=== PATIENT | female | born 1980 | race Caucasian/White ===

== ENCOUNTER 2020-03-31 09:08 | Emergency (ER) | payer OTHER, SELFPAY ==
[2020-03-31 09:15] VITALS: BP 136/86; PULSE 94; RESP 20; TEMP 36.7; O2SAT 97
[2020-03-31] MEDS: SODIUM CHLORIDE 0.9% IV 1,000 ML 999 ML IV CONT (09:36)
[2020-03-31] MEDS: ONDANSETRON INJ 4 MG/2 ML VIAL IV PUSH (09:36)
[2020-03-31 09:44] LABS: Hematocrit 42.5 % (35.0-49.0); Mean Corpuscular HGB Conc 32.9 g/dL (32.0-36.0); Mean Corpuscular Hemoglobin 28.4 pg (27.0-31.0); Mean Corpuscular Volume 86.2 fL (78.0-102.0); Mean Platelet Volume 9.9 fl (9.2-11.8); Platelet Count Result 347 K/mm3 (150-420); Red Blood Count 4.93 M/mm3 (4.20-5.40); White Blood Count 9.3 K/mm3 (4.8-10.8)
[2020-03-31 09:44] LABS: Add Urine Microscopic? YES; Bilirubin Urine Negative (Negative); Blood Urine 3+ (Negative); Color Urine Yellow (Yellow); Glucose Urine UA Negative (Negative); Ketones Urine Negative (Negative); Leukocyte Esterase Ur Negative (Negative); Nitrate Urine Negative (Negative); Protein Urine Negative (Negative); Specific Grav Ur 1.025 (1.010-1.020); Urobilinogen Urine 0.2 mg/dL (0.2-1.0); pH Urine 5.5 (5.0-8.0)
[2020-03-31 09:52] LABS: Appearance Urine Sl Cloudy (Clear); Squamous Epithelial Cell Urine Moderate /hpf (Few); WBC Urine 0-3 /hpf (0-3)
[2020-03-31 09:53] LABS: Bacteria Urine Trace /hpf; Mucus Urine None seen /lpf
[2020-03-31 10:00] LABS: Alanine Aminotransferase 40 U/L (14-59); Albumin Level 4.2 g/dL (3.4-5.0); Alkaline Phosphatase 97 U/L (46-116); Anion Gap 13.6 mmol/L (7-16); Aspartate Amino Transferase 22 U/L (15-37); Bilirubin,Total 0.3 mg/dL (0.00-1.00); Blood Urea Nitrogen 11 mg/dL (7-18); Calcium 9.2 mg/dL (8.5-10.1); Carbon Dioxide 26 mmol/L (21-32); Chloride 102 mmol/L (98-108); Creatine Kinase 99 U/L (26-192); Estimated Glomerular Filt Rate > 60; Glucose 100 mg/dL (70-99); Osmolality Calculated 285 mOsm/kg (285-295); Potassium 3.6 mmol/L (3.5-5.1); Sodium 138 mmol/L (136-145); Total Protein 8.2 g/dL (6.4-8.2)
--- NOTE | 2020-03-31 10:02 | ED.NAVMDI ---
HPI - Nausea/Vomiting/Diarrhea General Chief complaint: Nausea/Vomiting/Diarrhea Stated complaint: Weak,Fever Source: patient Mode of arrival: ambulatory Limitations: no limitations History of Present Illness HPI Narrative: 39-year-old female with some no prior past medical history presents with nausea currently no vomiting has crampy abdominal pain with watery diarrhea with some no fever no chills no shortness of breath had some way Il[place] approximately 2 days ago, patient works at local [employer] and is constantly tested for COVID. Currently there is no cough no shortness of breath. MD elicited complaint: nausea, diarrhea and abdominal pain Onset (ago): day(s) Description of vomiting: watery Location of pain: diffuse and epigastric Pain consistency: intermittent Severity: mild Quality: cramping Exacerbating factors: eating Related Data Allergies Allergy/AdvReac Type Severity Reaction Status Date / Time Penicillins Allergy Severe HIVES Verified 04/30/17 13:43 Review of Systems Review of Systems: All systems reviewed & are unremarkable except as noted in HPI and below PMFSH Past Medical History Medical History Patient denies medical problems Exam Const: General: no acute distress and alert Nutritional Appearance: well nourished and obese Orientation/consciousness: patient oriented x3 HENMT: Head: normal to inspection Eyes: Cornea: corneas normal Pupils: Equal, round and reactive pupils present EOM: EOMs intact bilaterally Neck: Neck: normal visual inspection, no lymphadenopathy and no meningeal signs Chest: Chest palpation & inspection: normal inspection of the chest Resp: Effort & Inspection: normal respiratory effort Cardio: Rate: regular rate Rhythm: regular rhythm GI: GI Palp: Yes Soft to palpation and Yes Tenderness to palpation present (GI) Percussion: Yes normal to percussion Auscultation: normal bowel sounds : General: Yes no CVA tenderness Urinary Catheter: Urinary Catheter: patent and draining Back/Spine/Pelvis: Back: no CVA tenderness Skin: General skin exam: normal color Rashes: no rashes Neuro: General: patient oriented x3, moves all extremities and no meningeal signs Extrem: General: normal to inspection Psych: Appearance: grossly normal Mental Status: mental status grossly normal Thought content: Yes Normal thought content present Course Course Emergency Course: patient is to have crampy abdominal pain but nausea has improved with Zofran, reviewed labs with patient and patient is comfortable going home with recommendations of clear liquid diet and drinking plenty of fluids and following with primary care physician if symptoms persist or worsen. Vital Signs Vital signs: Vital Signs Temperature 36.7 C 03/31/20 09:15 Pulse Rate 94 03/31/20 09:15 Respiratory Rate 20 03/31/20 09:15 Blood Pressure 136/86 03/31/20 09:15 Pulse Oximetry 97 03/31/20 09:15 Temperature 36.7 C 03/31/20 09:15 Pulse Rate 94 03/31/20 09:15 Respiratory Rate 20 03/31/20 09:15 Blood Pressure 136/86 03/31/20 09:15 Pulse Oximetry 97 03/31/20 09:15 MDM - Nausea/Vomiting/Diarrhea Lab Data Result diagrams: 03/31/20 09:36 03/31/20 09:36 Labs: Lab Results 03/31/20 03/31/20 03/31/20 Range/Units 09:30 09:36 09:36 WBC 9.3 (4.8-10.8) K/mm3 RBC 4.93 (4.20-5.40) M/mm3 Hgb 14.0 (12.0-15.0) g/dL Hct 42.5 (35.0-49.0) % MCV 86.2 (78.0-102.0) fL MCH 28.4 (27.0-31.0) pg MCHC 32.9 (32.0-36.0) g/dL RDW 13.0 (11.6-14.4) % Plt Count 347 (150-420) K/mm3 MPV 9.9 (9.2-11.8) fl Sodium 138 (136-145) mmol/L Potassium 3.6 (3.5-5.1) mmol/L Chloride 102 (98-108) mmol/L Carbon Dioxide 26 (21-32) mmol/L Anion Gap 13.6 (7-16) mmol/L BUN 11 (7-18) mg/dL Creatinine 0.78 (0.55-1.02) mg/dL Estim Creat Clear Calc No
[2020-03-31 10:09] VITALS: BP 130/84; PULSE 94; RESP 18; TEMP 36.9; O2SAT 98
== END 2020-03-31 10:16 | disposition home or self-care (01) ==
PROVIDERS: Emergency Provider Emergency Medicine; PCP Family Medicine
DX: K52.9 Noninfective gastroenteritis and colitis, unspecified (principal)
CPT/HCPCS: 36415; 80053; 81001; 82550; 85027; 96361; 96374; 99283; 99284; J2405; J7030

== ENCOUNTER 2020-08-23 10:13 | Outpatient (CLI) | payer OTHER, SELFPAY ==
[2020-08-23 10:55] LABS: SARS-CoV-2 Ag Negative (Negative)
[2020-08-23 10:56] LABS: Influenza Control Valid (Valid)
== END 2020-08-23 10:14 | disposition home or self-care (01) ==
LOC: CHSLAB 10:18
PROVIDERS: PCP Family Medicine; Visit Provider Family Medicine
DX: R50.9 Fever, unspecified (principal); Z20.828 Contact with and (suspected) exposure to other viral communicable diseases
CPT/HCPCS: 87081; 87426; 87804; 87880

== ENCOUNTER 2020-10-21 17:02 | Outpatient (CLI) | payer BC, SELFPAY ==
[2020-10-21 17:43] LABS: Influenza Control Valid (Valid); SARS-CoV-2 Ag Negative (Negative)
[2020-10-23 17:28] LABS: SARS-CoV-2 RNA PCR Negative
== END 2020-10-21 17:03 | disposition home or self-care (01) ==
LOC: CHSLAB 17:06
PROVIDERS: PCP Family Medicine; Visit Provider Family Medicine
DX: J00 Acute nasopharyngitis [common cold] (principal); Z20.822 Contact with and (suspected) exposure to COVID-19
CPT/HCPCS: 87081; 87426; 87804; 87880; C9803; U0003; U0005

== ENCOUNTER 2022-05-14 11:50 | Emergency (ER) | payer OTHER, SELFPAY ==
--- NOTE | ~2022-05-14 | XR_ITS ---
EXAMINATION: XR foot RT 2V DATE: 05/14/2022 12:24 INDICATION: Right foot injury. TECHNIQUE: 2 views of right foot were obtained. COMPARISON: None. FINDINGS: Bone alignment is normal. No fracture. There is mild osteoarthritis of first metatarsophala ngeal joint and some of the interphalangeal joints. IMPRESSION: 1. Mild polyarticular osteoarthritis. Reviewed, dictated and finalized at location A.
[2022-05-14 12:00] VITALS: BP 128/86; PULSE 92; RESP 16; TEMP 36.5; O2SAT 100
[2022-05-14 12:05] VITALS: BP 128/86; PULSE 89; RESP 20; TEMP 36.5; O2SAT 100
--- NOTE | 2022-05-14 13:11 | ED.LOWEXIN ---
HPI - Extremity Injury (Lower) General Chief Complaint: Extremity Injury, Lower Stated Complaint: FOOT PAIN Source: patient Limitations: no limitations History of Present Illness HPI Narrative: this is a 41-year-old female who presents after a heavy object fell on the anterior surface of her right foot causing some pain that she rates about a 5/10 with some bruising has no numbness or tingling has good range of motion in her foot and toes. complaint: foot injury Onset (ago): hour(s) Type of Injury: blunt Place: home Severity: mild Related Data Home Medications Medication Instructions Recorded Confirmed [id number] 1 tablet PO DAILY 05/14/22 05/14/22 Allergies Allergy/AdvReac Type Severity Reaction Status Date / Time Penicillins Allergy Severe HIVES Verified 05/14/22 12:17 Review of Systems Review of Systems: All systems reviewed & are unremarkable except as noted in HPI and below PMFSH Past Medical History Medical History (Updated 05/14/22 @ 13:15 by Curry Miranda MD) Patient denies medical problems Exam Const: General: healthy appearing and no acute distress HENMT: Head: normal to inspection Mouth: Yes Normal oral and palatal mucosa present Eyes: Conjunctivae: conjunctivae normal Pupils: Equal, round and reactive pupils present EOM: EOMs intact bilaterally Direct Ophthalmoscopy: no photophobia Neck: Neck: normal visual inspection Chest: Chest palpation & inspection: normal inspection of the chest Resp: Effort & Inspection: normal respiratory effort Auscultation: clear to auscultation bilaterally Cardio: Rate: regular rate GI: GI Palp: Yes Soft to palpation and Yes Tenderness to palpation present (GI) : General: Yes bladder normal to palpation Skin: Wounds: wounds noted Neuro: General: patient oriented x3 Cranial nerves: Yes Nystagmus not present Speech: normal speech Extrem: General: normal to inspection Psych: Mental Status: mental status grossly normal Course [employer]/PA Physician Supervision Reassessment of patient doing well Luis M declined any pain medication, ice was applied Tani wrap was applied to right foot and x-ray reviewed with patient. Vital Signs Vital signs: Vital Signs Temperature 36.5 C 05/14/22 12:00 Pulse Rate 92 05/14/22 12:00 Respiratory Rate 16 05/14/22 12:00 Blood Pressure 128/86 05/14/22 12:00 Pulse Oximetry 100 05/14/22 12:00 Oxygen Delivery Room Air 05/14/22 12:00 Temperature 36.5 C 05/14/22 12:05 Pulse Rate 89 05/14/22 12:05 Respiratory Rate 20 05/14/22 12:05 Blood Pressure 128/86 05/14/22 12:05 Pulse Oximetry 100 05/14/22 12:05 Oxygen Delivery Room Air 05/14/22 12:05 Critical Care Time Critical Care Time Critical Care Time: No Discharge Plan Discharge Clinical Impression: Contusion Qualifiers: Encounter type: initial encounter Contusion area: foot Laterality: right Qualified Code(s): S90.31XA - Contusion of right foot, initial encounter Sprain of right foot Qualifiers: Encounter type: initial encounter Qualified Code(s): S93.601A - Unspecified sprain of right foot, initial encounter Patient Disposition: Home, Self-Care Condition: Stable Instructions: Antibiotic Form, Foot Contusion (ED) Additional Instructions: can take Tylenol or Motrin as needed for pain and inflammation. Prescriptions: No Action Multiple Vitamin, Womens Tablet 1 tablet PO DAILY Follow-up/Referrals: UNKNOWN,DOCTOR [Primary Care Provider] - Time of Disposition: 13:15
[2022-05-14 13:13] VITALS: BP 115/83; PULSE 78; RESP 20; TEMP 36.7; O2SAT 100
== END 2022-05-14 13:22 | disposition home or self-care (01) ==
PROVIDERS: Emergency Provider Emergency Medicine
DX: S90.31XA Contusion of right foot, initial encounter (principal); S93.601A Unspecified sprain of right foot, initial encounter; W22.8XXA Striking against or struck by other objects, initial encounter
CPT/HCPCS: 73620; 99283

== ENCOUNTER 2023-10-28 12:03 | Outpatient (CLI) | payer OTHER, SELFPAY ==
[2023-10-28 12:57] LABS: SARS-CoV-2 RNA PCR Negative (Negative)
[2023-10-28 13:00] LABS: Influenza A QL RT-PCR Negative (Negative); Influenza B QL RT-PCR Negative (Negative); RSV RNA, RT-PCR Negative (Negative)
== END 2023-10-28 12:04 | disposition home or self-care (01) ==
LOC: CHSLAB 12:06
PROVIDERS: PCP Nurse Practitioner Family; Visit Provider Nurse Practitioner Family
DX: R06.02 Shortness of breath (principal); R11.0 Nausea; R09.81 Nasal congestion; Z20.822 Contact with and (suspected) exposure to COVID-19
CPT/HCPCS: 87637